=== PATIENT | female | born 1955 | race Two or more races ===

== ENCOUNTER 2024-04-08 17:22 | Emergency (ER) | payer OTHER ==
[~2024-04-08] VITALS: Ht 167.6 cm; Wt 80.0 kg
[2024-04-08] MEDS ORDERED: IBUP-1454 PO (20:18)
[2024-04-08] MEDS ORDERED: METH-1181 PO (20:18)
[2024-04-08] MEDS: KETOROLAC TROMETH 60MG/2ML VIAL IM ONE (20:29)
[2024-04-08 20:37] VITALS: BP 136/80; PULSE 69; RESP 19; TEMP 98.3; O2SAT 98
== END 2024-04-08 21:35 | disposition home or self-care (01) ==
LOC: ER 17:22
DX: S46.911A Strain of unspecified muscle, fascia and tendon at shoulder and upper arm level, right arm, initial encounter (principal); S09.8XXA Other specified injuries of head, initial encounter; W18.09XA Striking against other object with subsequent fall, initial encounter; Y93.89 Activity, other specified; Y92.89 Other specified places as the place of occurrence of the external cause; Y99.8 Other external cause status
CPT/HCPCS: 70450; 96372; 99285; J1885